=== PATIENT | female | born 1990 | race Caucasian/White ===

== ENCOUNTER 2017-07-09 14:47 | Emergency (ER) | payer MEDICAID ==
[~2017-07-09] VITALS: Ht 162.6 cm; Wt 68.3 kg
[2017-07-09 15:10] VITALS: BP 104/71
--- NOTE | 2017-07-09 15:14 | NUR ---
PER DR RAMOS [facility]
--- NOTE | 2017-07-09 15:35 | NUR ---
PT SHON CHAIR ASSISTED BACK TO THE LOBBY FROM XRAY BY PAINTER SPRAY
--- NOTE | 2017-07-09 16:09 | NUR ---
PT AMBULATED TO ER BED 04
--- NOTE | 2017-07-09 16:15 | NUR ---
PATIENT PRESENTS TO ED WITH C/O PRODUCTIVE COUGH, FEVER, CHILLS, CP 8/10 WHEN COUGHING X 4 DAYS; BEEN TAKING TYLENOL, DAYQUIL/NYQUILE, XL3 WITH NO RELIEF HX; DENIES RX; DENIES DENIES N/V/D; SKIN IS PINK/WARM/DRY; AAOX4 WITH EVEN AND STEADY GAIT; LUNGS CLEAR BL; HR EVEN AND REGULAR; PT DENIES ANY SOB AT THIS TIME; PATIENT STATES PAIN OF 8/10 AT THIS TIME; VSS; PATIENT POSITIONED FOR COMFORT; HOB ELEVATED; BEDRAILS UP X2; BED DOWN. ER MD MADE AWARE OF PT STATUS.
[2017-07-09] MEDS ORDERED: KETOROLAC 60 MG/2 ML VIAL IM ONE (17:00)
[2017-07-09 17:30] VITALS: BP 119/74
--- NOTE | 2017-07-09 17:30 | NUR ---
Patient discharged with v/s stable. Written and verbal after care instructions given and explained. Patient alert, oriented and verbalized understanding of instructions. Ambulatory with steady gait. All questions addressed prior to discharge. ID band removed. Patient advised to follow up with PMD. Rx of CIPRO, MOTRIN& PREDNISONE given. Patient educated on indication of medication including possible reaction and side effects. Opportunity to ask questions provided and answered.
== END 2017-07-09 17:30 | disposition home or self-care (01) ==
LOC: MED 14:47
DX: J11.1 Influenza due to unidentified influenza virus with other respiratory manifestations (principal); N39.0 Urinary tract infection, site not specified; R05 Cough; Z90.89 Acquired absence of other organs
CPT/HCPCS: 71046; 81002; 81025; 96372; 99284; J1885

== ENCOUNTER 2018-03-07 11:56 | Emergency (ER) | payer MEDICAID ==
[~2018-03-07] VITALS: Ht 162.6 cm; Wt 70.8 kg
[2018-03-07 11:59] VITALS: BP 108/68
[2018-03-07 12:25] VITALS: BP 108/68
== END 2018-03-07 12:26 | disposition home or self-care (01) ==
LOC: MED 11:56
DX: S50.861A Insect bite (nonvenomous) of right forearm, initial encounter (principal); L03.113 Cellulitis of right upper limb; W57.XXXA Bitten or stung by nonvenomous insect and other nonvenomous arthropods, initial encounter; Y93.89 Activity, other specified; Y92.89 Other specified places as the place of occurrence of the external cause; Y99.8 Other external cause status
CPT/HCPCS: 99283

== ENCOUNTER 2018-07-29 19:22 | Emergency (ER) | payer MEDICAID ==
[~2018-07-29] VITALS: Ht 162.6 cm; Wt 70.3 kg
[2018-07-29 19:35] VITALS: BP 128/77
--- NOTE | 2018-07-29 19:46 | NUR ---
PT AMBULATED TO ER BED 02
--- NOTE | 2018-07-29 19:55 | NUR ---
28YO FEMALE COMES TO ER FOR C/O PERIANAL LACERATION. PT C/O PAIN 3-4 OUT OF 10 PT DENIES FEVER CHILLS. PT AAOX4, S1 S2 DENIES CP/SOB. ABD SOFT NON DISTENDED. LUNGS CLEAR EVEN AND UNLABORED. SKIN WARM DRY. BED LOCKED IN LOWEST POSITION, WILL UPDATE ER MD WILL CONTINUE TO OBSERVE. DENIES MED HX OR RX
[2018-07-29] MEDS ORDERED: BACITRACIN OINT 500 UNITS/GM PKT TP ONE (20:30)
--- NOTE | 2018-07-29 20:35 | NUR ---
WOUND CLEANED AND OINTMENT ADMINISTERED ORDERED. PATIENT TOLERATED WELL.
[2018-07-29 20:45] VITALS: BP 120/77
--- NOTE | 2018-07-29 20:45 | NUR ---
Patient discharged with v/s stable. Written and verbal after care instructions given and explained. Patient alert, oriented and verbalized understanding of instructions. Ambulatory with steady gait. All questions addressed prior to discharge. ID band removed. Patient advised to follow up with PMD. Rx of LIDOCAINE TOPICAL JELLY given. Patient educated on indication of medication including possible reaction and side effects. Opportunity to ask questions provided and answered.
== END 2018-07-29 20:45 | disposition home or self-care (01) ==
LOC: MED 19:22
DX: S31.831A Laceration without foreign body of anus, initial encounter (principal); X58.XXXA Exposure to other specified factors, initial encounter; Y93.89 Activity, other specified; Y92.89 Other specified places as the place of occurrence of the external cause; Y99.8 Other external cause status
CPT/HCPCS: 99283

== ENCOUNTER 2018-08-09 04:53 | Emergency (ER) | payer MEDICAID ==
[~2018-08-09] VITALS: Ht 162.6 cm; Wt 71.2 kg
[2018-08-09 04:57] VITALS: BP 109/67
--- NOTE | 2018-08-09 04:57 | NUR ---
PT TAKEN TO BED 3
--- NOTE | 2018-08-09 05:07 | NUR ---
28 YO F PRESENTS TO ED CO BODY RASH/ITCHING ACCOMPANIED BY NAUSEA X 1 HOUR. PT STATES SHE WOKE UP FROM ITCHING AND DISCOVERED A RED RASH TO HER UPPER EXTREMETIES AND NECK. SHE ALSO STATES THE NAUSEA BEGAN AT THIS TIME. DENIES EMESIS OR CHANGE IN BOWEL HABITS. PT STATES THE LAST THING SHE ATE WAS A SUBWAY SANDWICH THE NIGHT BEFORE. --PMH: DENIES --RX: TOOK TYLENOL AT 0400 PT POSITIONED TO COMFORT. HOB ELEVATED. SIDE RAIL UP X1. NO APPARENT DISTRESS AT THIS TIME. VSS. Addendum: 08/09/18 at 0520 by [facility] RASH NOTED TO ABDOMEN, WELL.
[2018-08-09 05:50] VITALS: BP 109/67
--- NOTE | 2018-08-09 05:51 | NUR ---
Patient discharged with v/s stable. Written and verbal after care instructions given and explained. Patient alert, oriented and verbalized understanding of instructions. Ambulatory with steady gait. All questions addressed prior to discharge. ID band removed. Patient advised to follow up with PMD. Rx of Benadryl, Prednisone, and Epipen given. Patient educated on indication of medication including possible reaction and side effects. Opportunity to ask questions provided and answered.
== END 2018-08-09 05:51 | disposition home or self-care (01) ==
LOC: MED 04:53
DX: L50.9 Urticaria, unspecified (principal)
CPT/HCPCS: 81002; 81025; 99283

== ENCOUNTER 2018-08-17 15:24 | Emergency (ER) | payer MEDICAID ==
[~2018-08-17] VITALS: Ht 162.6 cm; Wt 72.6 kg
[2018-08-17 15:43] VITALS: BP 122/76
--- NOTE | 2018-08-17 15:51 | NUR ---
PT TO BED 5 WITH STEADY GAIT.
--- NOTE | 2018-08-17 15:54 | NUR ---
PT TO ER BED 5
--- NOTE | 2018-08-17 16:00 | NUR ---
C/O PRODUCTIVE COUGH WITH GREEN SPUTUM, CONGESTION, AND INTERMITTENT NAUSEA X 3 DAYS. TAKING XL3, BANOPHEN 25 MG AND PREDNISONE 50 MG WITHOUT RELIEF. LUNG SOUNDS CLEAR BILATERALLY THROUGHOUT, RESPIRATIONS EVEN AND UNLABORED. DENIES PAIN.
--- NOTE | 2018-08-17 16:30 | NUR ---
PA AT BEDSIDE PERFORMING MSE
--- NOTE | 2018-08-17 16:31 | NUR ---
XRAY AT BEDSIDE
[2018-08-17 17:32] VITALS: BP 125/75
--- NOTE | 2018-08-17 17:32 | NUR ---
Patient discharged with v/s stable. Written and verbal after care instructions given and explained. Patient alert, oriented and verbalized understanding of instructions. Ambulatory with steady gait. All questions addressed prior to discharge. ID band removed. Patient advised to follow up with PMD. Rx of TYLENOL, CLARITIN, AND ROBITUSSIN given. Patient educated on indication of medication including possible reaction and side effects. Opportunity to ask questions provided and answered.
== END 2018-08-17 17:32 | disposition home or self-care (01) ==
LOC: MED 15:24
DX: J06.9 Acute upper respiratory infection, unspecified (principal)
CPT/HCPCS: 71045; 99283; Q0092; 99284

== ENCOUNTER 2018-08-18 02:25 | Emergency (ER) | payer MEDICAID ==
[~2018-08-18] VITALS: Ht 162.6 cm; Wt 72.1 kg
--- NOTE | 2018-08-18 02:33 | NUR ---
PT TAKEN TO BED 2
[2018-08-18 02:37] VITALS: BP 138/75
--- NOTE | 2018-08-18 02:41 | NUR ---
EKG PERFORMED AT BEDSIDE. PT COVERED IN GOWN DURING PROCEDURE
--- NOTE | 2018-08-18 02:49 | NUR ---
28 YO F BIB SELF PRESENTS TO THE ED C/O DIFFICULTY SLEEPING. PT STATES "FEELING LIKE MY HEART WAS POUNDING FAST IN MY CHEST". PT ALSO REPORTS FEELING NUMBNESS TO BOTH ARMS. DENIES CHEST PAIN, SOB. -- EKG PERFORMED. PT ON IMPLEMENTATION SPECIALIST. -- PMH: DENIES -- RX: SM TUSSIN MUCUS COUGH SYRUP PT POSITIONED FOR COMFORT. HOB ELEVATED. SIDE RAIL UP X1. BED IN LOWEST POSITION. VSS. NO APPARENT DISTRESS AT THIS TIME.
[2018-08-18] MEDS ORDERED: NACL 0.9% 1,000 ML IV ONE (03:15)
--- NOTE | 2018-08-18 03:50 | NUR ---
IV removed, catheter intact and site benign. Applied folded 4x4 gauze and tape to stop bleeding.
[2018-08-18 03:53] VITALS: BP 107/71
--- NOTE | 2018-08-18 03:53 | NUR ---
Patient discharged with v/s stable. Written and verbal after care instructions given and explained. Patient verbalized understanding. Ambulatory with steady gait. All questions addressed prior to discharge. Advised to follow up with PMD.
== END 2018-08-18 03:53 | disposition home or self-care (01) ==
LOC: MED 02:25
DX: F41.9 Anxiety disorder, unspecified (principal)
CPT/HCPCS: 93005; 99283; J7030; 99284

== ENCOUNTER 2018-11-30 01:42 | Emergency (ER) | payer MEDICAID ==
[~2018-11-30] VITALS: Ht 162.6 cm; Wt 67.6 kg
[2018-11-30 01:45] VITALS: BP 116/76
--- NOTE | 2018-11-30 01:57 | NUR ---
PT AMBULATED TO BED
--- NOTE | 2018-11-30 02:03 | NUR ---
PT C/O BOTH ARMS FEELING TINGLY AND SENSITIVE SINCE TODAY. PAIN LEVEL 6/10, "FEELS LIKE MUSCLE SPASMS". PAIN STARTS IN BILATERAL SHOULDERS AND RADIATES TO FINGER TIPS. DENIES ANY TRAUMA OR OVERACTIVITY. PT ALSO C/O OF INSECT BITE ON LEFT UPPER LEG, AREA IS RED, SWOLLEN, AND WARM TO TOUCH. VSS. MED HX: APPENDECTOMY. SAFETY MEASURES IN PLACE. WAITING FOR ERMD TO EVALUATE PT.
--- NOTE | 2018-11-30 02:03 | NUR ---
Note lizzyone in EDM - 11/30/18 at 0218 by [email or web address] PT C/O BOTH ARMS FEELING TINGLY AND SENSITIVE SINCE TODAY. PAIN LEVEL 6/10, "FEELS LIKE MUSCLE SPASMS". PAIN STARTS IN BILATERAL SHOULDERS AND RADIATES TO FINGER TIPS. DENIES ANY TRAUMA OR OVERACTIVITY. PT ALSO C/O OF INSECT BITE ON LEFT LEG, AREA IS RED AND WARM TO TOUCH. VSS. MED HX: APPENDECTOMY. SAFETY MEASURES IN PLACE. WAITING FOR ERMD TO EVALUATE PT.
[2018-11-30] MEDS ORDERED: SULFAMETH/TRIMETH DS 800/160MG 1 TAB PO ONE (02:20)
[2018-11-30 02:45] VITALS: BP 116/76
--- NOTE | 2018-11-30 02:45 | NUR ---
Patient discharged with v/s stable. Pt stated tingling and muscle spasms decreased. Patient alert, oriented and verbalized understanding of instructions. Pt made aware to take all antibiotics as prescribed. Ambulatory with steady gait. All questions addressed prior to discharge. ID band removed. Rx of MOTRIN, BACTRIM, BENADRYL WAS given. Patient educated on indication of medication including possible reaction and side effects. Opportunity to ask questions provided and answered.
--- NOTE | 2018-11-30 02:58 | NUR ---
Note undone in EDM - 11/30/18 at 0300 by COMFORT Patient discharged with v/s stable. Pt stated tingling and muscle spasms decreased. Patient alert, oriented and verbalized understanding of instructions. Pt made aware to take all antibiotics as prescribed. Ambulatory with steady gait. All questions addressed prior to discharge. ID band removed. Rx of MOTRIN, BACTRIM, BENADRYL WAS given. Patient educated on indication of medication including possible reaction and side effects. Opportunity to ask questions provided and answered.
== END 2018-11-30 02:45 | disposition home or self-care (01) ==
LOC: MED 01:42
DX: S80.862A Insect bite (nonvenomous), left lower leg, initial encounter (principal); S40.262A Insect bite (nonvenomous) of left shoulder, initial encounter; S40.261A Insect bite (nonvenomous) of right shoulder, initial encounter; S50.862A Insect bite (nonvenomous) of left forearm, initial encounter; L03.116 Cellulitis of left lower limb; W57.XXXA Bitten or stung by nonvenomous insect and other nonvenomous arthropods, initial encounter; Y93.11 Activity, swimming; Y92.34 Swimming pool (public) as the place of occurrence of the external cause; Y99.8 Other external cause status
CPT/HCPCS: 81002; 81025; 99283

== ENCOUNTER 2019-08-26 15:41 | Emergency (ER) | payer MEDICAID ==
[~2019-08-26] VITALS: Ht 162.6 cm; Wt 63.5 kg
[2019-08-26 15:42] VITALS: BP 118/80
--- NOTE | 2019-08-26 15:42 | NUR ---
Pt triaged, pt wearing mask, ambulatory to bed
--- NOTE | 2019-08-26 16:11 | NUR ---
29F reports cold sensation on throat and chest, intermittently x3 weeks. reports resolved cloudy urine, denies dysuria, finished rx cipro. afebrile, denies cough/congestion. pt states they were dx of uti 3 weeks ago and was prescribed cipro and stated it did not help, she was then prescribed nitrofurantoin but did not take the medication. pt stated that they took otc uti test and her urine tested positive for uti. denies med hx
--- NOTE | 2019-08-26 16:16 | NUR ---
DR GRANT AT BEDSIDE EVALUATING PATIENT.
--- NOTE | 2019-08-26 16:35 | NUR ---
Patient discharged with v/s stable. Written and verbal after care instructions given and explained. Patient alert, oriented and verbalized understanding of instructions. Ambulatory with steady gait. All questions addressed prior to discharge. ID band removed. Patient advised to follow up with PMD. Rx of DIFLUCAN given. Patient educated on indication of medication including possible reaction and side effects. Opportunity to ask questions provided and answered.
[2019-08-26 16:42] LABS: APPEARANCE,URINE SL CLOUDY (CLEAR); BILIRUBIN,URINE NEGATIVE (NEGATIVE); BLOOD, URINE NEGATIVE (NEGATIVE); COLOR,URINE YELLOW (YELLOW); LEUKOCYTE ESTERASE ,URINE 1+ (NEGATIVE); NITRITE, URINE NEGATIVE (NEGATIVE); PH,URINE 7.5 (5.0-9.0); UGLUCOSE NEGATIVE (NEGATIVE)
[2019-08-26 16:52] LABS: RBC,URINE NONE SEEN /HPF (0-5); WBC,URINE 16-25 (MOD) /HPF (0-5)
[2019-08-28 06:07] LABS: CHLAMYDIA TRACHOMATIS AMP DNA Negative (Negative)
== END 2019-08-26 16:35 | disposition home or self-care (01) ==
LOC: MED 15:41
DX: N39.0 Urinary tract infection, site not specified (principal); Z90.49 Acquired absence of other specified parts of digestive tract
CPT/HCPCS: 36415; 81001; 81025; 87086; 87491; 99283

== ENCOUNTER 2022-05-04 21:11 | Emergency (ER) | payer MEDICAID ==
[~2022-05-04] VITALS: Ht 162.6 cm; Wt 70.8 kg
[2022-05-04 21:15] VITALS: BP 112/82
--- NOTE | 2022-05-04 21:18 | NUR ---
TO LOBBY A/W BED AMBULATORY
[2022-05-04 21:20] VITALS: BP 112/82
[2022-05-04] MEDS ORDERED: SUD30 PO (23:50)
[2022-05-04] MEDS ORDERED: IBUP-2213 PO (23:50)
--- NOTE | 2022-05-04 23:57 | NUR ---
Patient discharged with v/s stable. Written and verbal after care instructions given and explained. Patient alert, oriented and verbalized understanding of instructions. Ambulatory with steady gait. All questions addressed prior to discharge. ID band removed. Patient advised to follow up with PMD. Rx of IBUPROFEN SUDAFED given.
== END 2022-05-04 23:57 | disposition home or self-care (01) ==
LOC: MED 21:11
DX: J02.9 Acute pharyngitis, unspecified (principal); Z79.899 Other long term (current) drug therapy
CPT/HCPCS: 99282

== ENCOUNTER 2024-01-23 19:13 | Emergency (ER) | payer MEDICAID ==
[~2024-01-23] VITALS: Ht 162.6 cm; Wt 70.8 kg
[~2024-01-23 19:13] MED LIST: IBUP-2213 PO; SUD30 PO
[2024-01-23 19:20] VITALS: BP 118/80; PULSE 87; RESP 20; TEMP 98.2; O2SAT 96
[2024-01-23] MEDS: MECLIZINE 25 MG TAB PO ONE (19:52)
[2024-01-23] MEDS ORDERED: MECL-303 PO (20:11)
[2024-01-23 20:20] VITALS: BP 118/80; PULSE 87; RESP 20; TEMP 98.2; O2SAT 96
== END 2024-01-23 20:20 | disposition home or self-care (01) ==
LOC: MED 19:13
DX: R42 Dizziness and giddiness (principal); Z72.820 Sleep deprivation; Z79.899 Other long term (current) drug therapy
CPT/HCPCS: 99282; J8597